=== PATIENT | female | born 1965 | race Caucasian/White ===

== ENCOUNTER 2017-07-25 07:21 | Day surgery (SDC) | payer BC ==
[2017-07-19 16:19] VITALS: BMI 22.8
[~2017-07-25 07:21] MED LIST: DEXAMETHASONE SOD PHOSPHATE 4 MG/ML 1 ML VIAL IV ONE; FAMOTIDINE 20 MG/2 ML VIAL IV ONE; LACTATED RINGERS 1,000 ML IV SCH; ONDANSETRON 4 MG/2 ML VIAL IVP ONE; ONDANSETRON 4 MG/2 ML VIAL IVP PRN; ceFAZolin IN SWFI 2 GM/20 ML SYRINGE IVP ONE; fentaNYL (PF) 50 MCG/ML 2 ML AMP IV PRN
[2017-07-25] MEDS: OXYMETAZOLINE 0.05% NASL SPRAY 1 SPRAY BOTTLE NASAL ONE ×5 (07:58→08:20)
[2017-07-25 08:04] LABS: Glucose,Whole Blood 102 mg/dL (75-99)
[2017-07-25] MEDS ORDERED: LIDOCAINE 1% 20 ML VIAL (10MG/ML) FOR IV START INTRADERMA ONE (08:06)
[2017-07-25] MEDS ORDERED: GLYCOPYRROLATE 0.2 MG/ML 2 ML VIAL ONE (08:35)
[2017-07-25] MEDS ORDERED: fentaNYL (PF) 50 MCG/ML 2 ML AMP ONE (08:35)
[2017-07-25] MEDS ORDERED: DEXAMETHASONE SOD PHOS (MDV) 100 MG/10 ML VIAL ONE (08:35)
[2017-07-25] MEDS ORDERED: NEOSTIGMINE 1 MG/ML 10 ML VIAL ONE (08:35)
[2017-07-25] MEDS ORDERED: ROCURONIUM BROMIDE 10 MG/ML 10 ML VIAL IV ONE (08:35)
[2017-07-25] MEDS ORDERED: PROPOFOL 10 MG/ML 20 ML VIAL IV ONE (08:35)
[2017-07-25] MEDS ORDERED: LIDOCAINE 1% INJ 10MG/ML (20 ML MDV) ONE (08:35)
[2017-07-25] MEDS ORDERED: MIDAZOLAM 2 MG/2 ML VIAL ONE (08:35)
[2017-07-25] MEDS ORDERED: HYDROmorphone (PF) 1 MG/ML ONE (08:35)
[2017-07-25] MEDS ORDERED: LIDOCAINE 1%-EPI 1:100,000 20 ML VIAL SQ ONE (09:04)
[2017-07-25] MEDS ORDERED: BACITRACIN 500 UNIT/GM OINT 28.4 GM TUBE TOPICAL ONE (09:05)
[2017-07-25] MEDS ORDERED: EPINEPHrine 1 MG/ML (MDV) 30 ML VIAL TOPICAL ONE (09:05)
[2017-07-25] MEDS ORDERED: FLUORESCEIN STRIPS 1 MG STRIP MISCELLANE ONE (09:05)
--- NOTE | 2017-07-25 10:08 | P.OP ---
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 She's had a hard time breathing through her nose. This is been a lifetime problem. Examination reveals a severe deviated septum to the right with near 100% occlusion with evidence of chronic sinusitis and very large polyp of the left maxillary sinus. Since she's failed medical therapy antibiotics [id number] nasal sprays etc. with no improvement we decided to proceed forward with surgery. All risks, benefits, and alternative therapies were discussed. Operative Findings: Severe right septal deviation with 100% occlusion with large obstructive inferior turbinates. Evidence of chronic sinusitis of the ethmoid and maxillary sinuses with evidence of a very large left maxillary sinus polyp with obstruction Description of Procedure: This patient was taken to the operative room and placed in the supine position. A general inhalation anesthetic was administered to the patient by the department of anesthesia with a functioning IV line in place. The patient was monitored throughout the entire case by the department of anesthesia. The eyes were taped shut for protection. The patient was placed in a slight reverse Trendelenburg position. The patient had previously utilize Afrin nasal spray preoperatively. The nose was evaluated and the septum lateral nasal wall and inferior turbinates were injected with lidocaine 1% with epinephrine 1 100,000 bilaterally. Approximately 10 minutes were allowed wait for full vasoconstrictive effects to take place. At this point a caudal incision was made over the caudal portion of the left septum down to the mucoperichondrium. A mucoperichondrial flap was elevated on the left side and dissection was carried with use of tunnels posteriorly. We then made a crossover incision through the cartilage to the contralateral side and for the mucoperichondrial flap development was performed to the extent of visualization on the contralateral side. After the cartilage was freed with use of several crosshatching incisions and removal of some redundant strips of septal cartilage, the septum was straightened and placed back in the midline. The septum was sutured fixated to the ovarian groove. Excellent straightening occurred and the septum was visibly straight. Incision was closed with a 40 rapid Vicryl. We utilized a running nonlocking fashion for closure of the incision. A quilting stitch was used to reapproximate the septal flaps with use of a 40 rapid Vicryl. We then entered the nose with a 0 and 30 Lima aashish endoscope. Previous to this we did inject the lateral nasal wall and middle turbinate and uncinate process with lidocaine 1% with epinephrine 1 100,000. Approximately 10 minutes were allowed wait for full vasoconstrictive effects to take place. With use of a microdebrider and a pediatric backbiter, we took down the uncinate process bilaterally. We then opened the maxillary sinuses bilaterally. A large left maxillary sinus polyp was removed. We utilized a microdebrider for this and entered the maxillary sinuses and removed diseased tissue. This was done bilaterally. After the maxillary sinuses were opened and the diseased tissue was removed we entered the ethmoid bulla and with use of a microdebrider and up- biting sarahs jong Laura, we followed the fovea frontalis through the basal lamella and into the posterior ethmoid air cells and did a total ethmoidectomy. We removed the anterior ethmoid air cells with use of a microdebrider and up- biting boss. After all the anterior ethmoid air cells were removed we did the same in the posterior ethmoid. A total ethmoidectomy was completed in that fashion with removal of all the anterior and posterior ethmoid air cells and diseased tissue. Xerogel was inserted and minimal bleeding was encountered. We reinspected the skull base there is no signs of any orbital penetration or signs of any intracranial penetration. The sugical site was reinspected after the xerogel was placed and no bleeding was seen. Intranasal splints were inserted and fixated at the end of the case. We utilized Cline nasal splints. There will be removed and the patient returns to the office. Attention was then paid to the inferior turbinates. The bilateral inferior turbinates were hypertrophic and obstructive. We entered the anterior portion of the inferior turbinates with use of a microdebrider. We remove bone and submucosal elements with use of a microdebrider bilaterally. The inferior turbinates underwent a submucosal resection with removal of submucosal tissue and bone. We obtained a much better and normal in size for breathing. The inferior turbinates were then outfractured and compressed with a Boyes nasal elevator. Excellent airway was obtained and was symmetric bilaterally. No bleeding was encountered.
[2017-07-25 10:11] VITALS: TEMP 97.3
[2017-07-25 10:41] VITALS: RESP 16
[2017-07-25] MEDS ORDERED: ACETAMINOPHEN TAB 325 MG TAB PO ONE (10:56)
[2017-07-25 11:42] VITALS: BP 148/91; PULSE 76
== END 2017-07-25 11:44 | disposition home or self-care (01) ==
LOC: OR 07:21
PROVIDERS: ATTEND Otolaryngology
DX: J32.9 Chronic sinusitis, unspecified (principal); J33.8 Other polyp of sinus; J34.2 Deviated nasal septum; J34.3 Hypertrophy of nasal turbinates; I25.10 Atherosclerotic heart disease of native coronary artery without angina pectoris; I10 Essential (primary) hypertension; Z87.891 Personal history of nicotine dependence; M79.7 Fibromyalgia; F98.8 Other specified behavioral and emotional disorders with onset usually occurring in childhood and adolescence; I25.2 Old myocardial infarction; Z88.5 Allergy status to narcotic agent; Z88.2 Allergy status to sulfonamides; Z91.030 Bee allergy status; Z79.02 Long term (current) use of antithrombotics/antiplatelets; Z79.82 Long term (current) use of aspirin; Z79.899 Other long term (current) drug therapy; E78.5 Hyperlipidemia, unspecified; J45.909 Unspecified asthma, uncomplicated
CPT/HCPCS: 88305; 88300; 30520; 31267; 31255; 30140; J0171; J2250; J1100 ×2; J2710; J2405; J2001; J3010; J1170; J2704

== ENCOUNTER → 2018-05-22 | Outpatient (CLI) | payer BC ==
--- NOTE | 2018-05-22 12:43 | CT ---
EXAMINATION TYPE: CT chest w con DATE OF EXAM: 05/22/2018 COMPARISON: NONE HISTORY: SOB per patient. Sarcoidosis per order CT DLP: 127.8 mGycm. Automated Exposure Control for Dose Reduction was Utilized. TECHNIQUE: CT scan of the thorax is performed following with IV Contrast, patient injected with 100 mL of Isovue M300. FINDINGS: LUNGS: In the right lower lobe there is lateral 8 x 5 mm nodule axial image 44 slightly tubular in sh ape. In the inferior right upper lobe there is 4 x 2 mm nodule axial image 33. There is elongated 6 mm nodule along the fissure axial image 35 seen best on coronal images. There is minimal linear scarr ing and/or atelectasis in both bases just above diaphragm. There is mild to moderate biapical pleural /parenchymal scarring. There is no pleural effusion or pneumothorax seen bilaterally. The tracheobro nchial tree is patent. MEDIASTINUM: There are no greater than 1 cm hilar or mediastinal lymph nodes. No cardiomegaly or pe ricardial effusion is seen. OTHER: Mild to moderate multilevel spurring in the spine is present posterior spur effaces anterior t hecal sac at T12-L1 level sagittal image 49. Moderate spurring and narrowing bilateral acromioclavicu lar joints is present. IMPRESSION: 1. Mild parenchymal changes as detailed above. No suspicious adenopathy. No suspicious acute pulmonar y process. 2. Scattered right-sided pulmonary nodules, most concerning is 8 x 5 mm right lower lobe lateral nodu le. Advise follow-up as per Fleischner Society recommendations, correlate clinically for low risk or high risk status.
== END ==
LOC: RADCTMAIN 12:03
PROVIDERS: ATTEND Internal Medicine Rheumatology
DX: R91.8 Other nonspecific abnormal finding of lung field (principal)
CPT/HCPCS: 71260; Q9967

== ENCOUNTER → 2018-09-08 | Outpatient (CLI) | payer BC ==
--- NOTE | 2018-09-08 15:49 | CT ---
EXAMINATION TYPE: CT chest wo con DATE OF EXAM: 09/08/2018 COMPARISON: 05/22/2018 HISTORY: Follow up lung nodules. Difficulty breathing and shortness of breath. CT DLP: [address] of the chest was performed with lung and mediastinal window settings submitted. The la ck of contrast limits evaluation of the vascular, mediastinal and parenchymal structures including th e upper abdomen. LUNGS: The lungs are clear and free of infiltrate. No atelectasis. Stable right lower lobe pulmonary nodule measuring 8 x 5 mm image 40. Stable right lower lobe superior segment pulmonary nodule measuri ng 5.3 mm versus 5.3 mm previously. Stable tiny subpleural nodularity. No new nodules. No space occup ildefonso masses. No pleural effusion. No CT evidence of interstitial lung disease. MEDIASTINUM/ELVIS: Thoracic aorta is of normal caliber with limited evaluation given lack of contrast . The heart is not enlarged. No evidence for mediastinal mass. No lymph nodes greater than 1cm. UPPER ABDOMEN: No significant abnormality is seen. OTHER: No significant other abnormality. IMPRESSION: 1. Stable nonspecific pulmonary nodularity. Stability over a two-year timeframe should be documented radiographically.
== END ==
LOC: RADCTMAIN 15:11
PROVIDERS: ATTEND Family Medicine
DX: R91.8 Other nonspecific abnormal finding of lung field (principal)
CPT/HCPCS: 71250

== ENCOUNTER → 2018-09-16 | Outpatient (CLI) | payer BC | LOC: CPPFTMAIN 13:30 | PROVIDERS: ATTEND Family Medicine | DX: R06.09 Other forms of dyspnea (principal) | CPT/HCPCS: 94060; 94726; 94729 ==

== ENCOUNTER → 2018-12-27 | Outpatient (CLI) | payer BC ==
--- NOTE | 2018-12-28 23:57 | MR ---
EXAMINATION TYPE: MR lumbar spine wo con DATE OF EXAM: 12/27/2018 COMPARISON: None HISTORY: Intervertebral disc disorder Back pain TECHNIQUE: Multiplanar, multisequence images of the lumbar spine were acquired. Lumbar vertebra have normal alignment. Disc spaces are fairly normal. There is no compression fractur e. Lumbar nerve roots appear normal. The neural foramina are widely patent. There is no compression f racture. There is no lumbar paraspinal mass. There is no spinal stenosis. Sacroiliac joints appear no rmal. There is an 8 mm rounded area of fluid signal in the right side neural foramen at T11-12 there is consistent with small lateral meningocele. There is a small posterior disc bulge at T12-L1 without compromise of the spinal canal. IMPRESSION: Minimal posterior disc bulging at T12-L1. 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 Otherwise negative exam.
== END | disposition home or self-care (01) ==
LOC: RADMRIMAIN 09:00
PROVIDERS: ATTEND Family Medicine
DX: Q05.9 Spina bifida, unspecified (principal)
CPT/HCPCS: 72148